=== PATIENT | female | born 2000 | race Hispanic/Latino ===

== ENCOUNTER 2020-11-20 18:45 | Emergency (ER) | payer OTHER ==
[2020-11-20 21:08] LABS: MONO NEGATIVE CONTROL ZONE White (Negative) (White); MONO POSITIVE CONTROL Pink Line (Positive) (PINK/RED); Mononucleosis NEGATIVE (NEGATIVE)
[2020-11-20] MEDS ORDERED: Acetaminophen 500 MG TAB ONE (22:08)
[2020-11-21 14:08] LABS: SARS-CoV-2 PCR by NAA Not Detected (NotDetected)
== END 2020-11-20 22:13 | disposition home or self-care (01) ==
LOC: CSHERS 18:45
DX: U07.1 COVID-19 (principal); J12.82 Pneumonia due to coronavirus disease 2019; J06.9 Acute upper respiratory infection, unspecified; E03.9 Hypothyroidism, unspecified
CPT/HCPCS: 36415; 71045; 86308; 87635; 87804; 93005; U0003; U0005